=== PATIENT | male | born 2000 | race Caucasian/White ===

== ENCOUNTER 2022-04-10 14:08 | Emergency (ER) | payer SELFPAY ==
[~2022-04-10] VITALS: Ht 181.6 cm; Wt 106.3 kg
[2022-04-10 14:33] VITALS: BP 150/92
[2022-04-10] MEDS ORDERED: IBUP-2213 PO (15:36)
[2022-04-10 15:46] VITALS: BP 150/92
--- NOTE | 2022-04-10 15:47 | NUR ---
PT LEFT BEFORE MEDICATION AND DC PAPERWORK
== END 2022-04-10 15:46 | disposition home or self-care (01) ==
LOC: MED 14:08
DX: M25.551 Pain in right hip (principal)
CPT/HCPCS: 99281